=== PATIENT | female | born 1995 | race Caucasian/White ===

== ENCOUNTER 2016-10-21 02:51 | Emergency (ER) | payer SELFPAY ==
[~2016-10-21] VITALS: Ht 170.2 cm; Wt 63.5 kg
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
[2016-10-21 04:15] VITALS: BP 115/62
== END 2016-10-21 04:15 | disposition home or self-care (01) ==
LOC: EMR 03:08
DX: F10.120 Alcohol abuse with intoxication, uncomplicated (principal)
CPT/HCPCS: 36415; 80300; 82962; 99284; G0480; 80329